=== PATIENT | male | born 1965 | race Caucasian/White ===

== ENCOUNTER 2020-10-21 05:22 | Day surgery (SDC) | payer BC, SELFPAY ==
[2020-10-07 08:35] VITALS: BMI 41.4
[2020-10-21 06:01] VITALS: BP 103/60; PULSE 63; RESP 18; TEMP 36.6; O2SAT 99; BMI 40.8
--- NOTE | 2020-10-21 06:06 | PCM.HP.BLA ---
Problem List (1) Diarrhea Status: Acute Qualifiers: (2) Nausea & vomiting Status: Acute Qualifiers: (3) Abdominal pain Status: Acute Qualifiers: Abdominal location: generalized Qualified Code(s): R10.84 - Generalized abdominal pain History and Physical Date of Admission: 10/21/20 Intake Visit Reasons: Change in bowel habits Humanities Teacher Required: No Is patient in pain?: No Allergies acetaminophen [From Vicodin] Allergy (Unknown, Verified 10/07/20 08:30) unknown hydrocodone [From Vicodin] Allergy (Unknown, Verified 10/07/20 08:30) unknown meperidine [From Demerol] Allergy (Unknown, Verified 10/07/20 08:30) unknown Medications albuterol sulfate 90 mcg/actuation aerosol inhaler 2 puff INHALATION Q6H PRN 10/07/20 [History Confirmed 10/07/20] amlodipine 5 mg tablet 5 mg PO DAILY 10/07/20 [History Confirmed 10/07/20] atorvastatin 20 mg tablet 20 mg PO DAILY 10/07/20 [History Confirmed 10/07/20] epinephrine 0.3 mg/0.3 mL injection, auto-injector 0.3 mg IM ONCE 10/07/20 [History Confirmed 10/07/20] fenofibrate 160 mg tablet 160 mg PO DAILY 10/07/20 [History Confirmed 10/07/20] glimepiride 1 mg tablet 1 mg PO DAILY 10/07/20 [History Confirmed 10/07/20] hydrochlorothiazide 25 mg tablet 25 mg PO DAILY 10/07/20 [History Confirmed 10/07/20] hydrochlorothiazide 25 mg tablet 25 mg PO Q OTHER DAY 10/07/20 [History Confirmed 10/07/20] lisinopril 5 mg tablet 5 mg PO DAILY 10/07/20 [History Confirmed 10/07/20] metformin 500 mg tablet 1,000 mg PO BID tablet 10/07/20 [History Confirmed 10/07/20] omega-3 fatty acids 1,000 mg capsule 1,000 mg PO DAILY 10/07/20 [History Confirmed 10/07/20] [facility] Medical History (Updated 10/07/20 @ 08:[address] Colin Raymundo MD) Acid reflux (Acute) Diarrhea (Acute) Nausea & vomiting (Acute) History of back problems (Acute) Arthritis (Acute) Diabetes (Acute) Hypertension (Chronic) Mixed hyperlipidemia (Acute) Cholelithiasis (Acute) Surgical History (Updated 10/07/20 @ 08:26 by Catina Ignacio) Hx of dilation of urethra (Acute) Hx of hand surgery (Acute) Hx of shoulder surgery (Acute) Family History (Updated 10/07/20 @ 08:28 by Catina Ignacio) Sister Non-Hodgkin lymphoma Mother Cancer of mesothelial tissue History of asbestosis Diabetes Heart disease Social History (Updated 10/07/20 @ 08:[address] Colin Raymundo MD) Smoking Status: Current every day smoker tobacco type: smokeless tobacco Smokeless tobacco user: snuff alcohol intake: never substance use type: does not use caffeine: Yes what type of physical activity do you participate in: none frequency: does not exercise HPI HPI HPI: BENEDICTO ALFONSO, is a 54 M who presents to the office today for surgical consultation. He is referred by Donald Arauz CNP and a written copy of my surgical consult recommendations will be returned to her. For probably 3 weeks he has been having problems with diarrhea and abdominal pain and nausea. He had stopped his omeprazole 4 weeks ago. Is not sure whether the abdominal pain correlates. He has had no fever chills sweats. He has been tested for COVID-19 on 3 occasions and was always negative. He has no loss of taste. Family history is negative for colon polyps or colon cancer. He has never had a colonoscopy. He returned to taking the omeprazole therapy and the pain is improved. Morning nausea still remains . He was also initiated on Metamucil which has helped with the diarrhea. To add some confusion he he had some finger surgery done and apparently became hypoxic requiring intubation and ventilation on the table. It was recommended to him that he might have sleep apnea and should be evaluated. He has avoided that to date. 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 HPI HPI HPI: BENEDICTO ALFONSO, is a 54 M who presents to the office today for Exam Const General: cooperative, comfortable, no acute distress Nutritional Appearance: overweight Orientation: alert, awake [facility] Head: normal to inspection Eyes General: appearance normal, both eyes and all related structures Chest Other: Increased anterior posterior diameter Resp Effort & Inspection: normal respiratory effort Auscultation: clear to auscultation bilaterally Cardio Rate: regular rate Rhythm: regular rhythm GI Other: Soft, overweight, nontender, Musc Cervical Spine: normal cervical lordosis Neuro Cognition: normal cognition Extrem General: no calf tenderness Psych Affect: normal affect Assessment & Plan Problems 1. Nausea and vomiting, intractability of vomiting not specified, unspecified vomiting type R11.2 2. Diarrhea, unspecified type R19.7 3. Generalized abdominal pain R10.84 Plan Morning nausea, epigastric and generalized abdominal pain, diarrhea of undetermined etiology. Suspicious presentation consistent with sleep apnea. I recommend the patient a esophagogastroduodenoscopy with possible biopsy and colonoscopy with possible biopsy or polypectomy as indicated. He is aware of the technique, benefit, risk, alternatives. I have additionally encouraged him to seek his primary care regarding evaluation for possible sleep apnea. He has had an opportunity to ask and have questions answered. We will schedule and expedite his care. Very careful inspection of both upper and lower systems were pursued with likely calvert biopsy. Please note that there is a past medical history documenting cholelithiasis. copy: ALEXEI Farnsworth M.D., F.A.C.S. Coding Level of Care Code 05416 Diagnoses Nausea and vomiting, intractability of vomiting not specified, unspecified vomiting type R11.2 ??Vomiting type: unspecified ??Vomiting Intractability: unspecified Diarrhea, unspecified type R19.7 ??Diarrhea type: unspecified type Generalized abdominal pain R10.84 ??Abdominal location: generalized I have re-examined the patient. There are no clinical changes since date of exam. Procedure Criteria Procedure Type: Elective COVID Risk Discussion: The surgeon/proceduralist and patient have discussed in detail the risk of exposure to and/or potential harm posed by the COVID-19 virus with having a surgery/procedure at this time versus the risk of delaying the surgery/procedure. It is not possible to know either the risk of delaying the surgery or procedure or chance of getting an infection with perfect accuracy, but a joint decision was made between the patient and the surgeon/proceduralist to proceed at this time with the scheduled surgery/procedure as indicated on the consent form.
[2020-10-21] MEDS: Lactated Ringers 1,000 ML 100 ML IV (06:15)
[2020-10-21 06:25] LABS: Bedside Glucose 87 mg/dL (70-110)
--- NOTE | 2020-10-21 06:30 | IMM_PTH ---
PATIENT: BENEDICTO ALFONSO LOC: EN U#:[id number] AGE/SX: 54/M ROOM: RE10/21/[address]: Dr. Colin Raymundo MD : 1965 BED: DIS: 10/21/2020 SPEC #: [id number] RECD: 10/21/20 13:50 STATUS: RONI REQ #: [id number] PAULINO: 10/21/20 06:[address]: Colin Raymundo DEPT: IMMUNOHISTOCHEMISTRY RECD BY: Sherlyn Car ENTERED: 10/21/20 13:50 SP TYPE: IMMUNO OTHR DR: Donald Arauz, SALES OUTFITTER-C Tissues: B - Stomach, NOS Procedures: H Pylori (initial) PHYSICIAN & INSTITUTION [place] [id number] SPECIMEN INFORMATION: Tissue Source: B - Antrum biopsy Clinical Info: Diarrhea, nausea and vomiting, abdominal pain Specimen Number: [id number] CPT code: 63680 METHODOLOGY: Deparaffinized sections of prefer/formalin-fixed tissue or PAP/DQ stained slides are incubated with monoclonal/polyclonal antibodies/oligonucleotide probes. Localization is made via biotin free immunoperoxidase method. Appropriate controls are performed and reacted as expected. Results on target cell population are indicated in the following table: RESULTS: ANTIBODY / CLONE RESULT Block B H Pylori (polyclonal) negative These tests were developed and their performance characteristics determined by [facility]. They may not have been cleared or approved by the U.S. Food and Drug Administration. The FDA has determined that such clearance or approval is not necessary. INTERPRETATION: B. Antrum biopsy: Negative for Helicobacter pylori organisms. AM:aurelia 10/24/2020
--- NOTE | 2020-10-21 06:30 | COLBX_PTH ---
PATIENT: BENEDICTO ALFONSO LOC: EN U#:[id number] AGE/SX: 54/M ROOM: RE10/21/[address]: Dr. Colin Raymundo MD : 1965 BED: DIS: 10/21/2020 SPEC #: [id number] RECD: 10/21/20 10:36 STATUS: RONI TREJO #: [id number] PAULINO: 10/21/20 06:[address]: Colin Raymundo DEPT: SURGICAL PATHOLOGY RECD BY: Cherie Mendez ENTERED: 10/21/20 13:28 SP TYPE: COLON BX OTHR DR: Donald Arauz, CHANNEL MARKETING MANAGER-C Tissues: A - Duodenum, NOS B - Gastric mucous membrane C - Esophagus, NOS D - Esophagus, NOS E - COLON BIOPSY Procedures: Trichrome (control) Special Stain Group II Surgery Specimen Level IV Alcian Blue/PAS (control) HEADER OPERATION: [place] [place] DIAGNOSIS: Diarrhea, nausea and vomiting, abdominal pain TISSUE SUBMITTED: A - Duodenum biopsy, B - Antrum biopsy for H. pylori and path, C - Distal esophagus biopsy, D - Mid esophagus biopsy, E - Random colon biopsy MICROSCOPIC DIAGNOSIS A. Duodenum, biopsy: Chronic duodenitis with flattening of villi. See comment. B. Gastric antrum, biopsy: Chronic gastritis. See comment. C. Distal esophagus, biopsy: Gastroesophageal junctional mucosa with mild chronic inflammation. No evidence of goblet cell metaplasia. Focal changes of reflux. See comment. D. Mid esophagus, biopsy: Fragments of squamous mucosa with no pathologic change. E. Colon, random biopsy: No pathologic change. See comment. AM:aurelia 10/24/2020 COMMENT A. The differential diagnosis includes celiac sprue. Clinical correlation is necessary. B. The results of immunohistochemistry for Helicobacter pylori will be reported separately ([id number]). C. Alcian blue/PAS stain with matched control supports the above diagnosis. E. Trichrome stain with matched control was used in the evaluation of this case. MICROSCOPIC DESCRIPTION Slides are reviewed. GROSS DESCRIPTION A - Received in fixative is one container labeled with the patient's name and designated duodenum biopsy. The specimen consists of one irregular fragment of light wills soft tissue that measures 0.5 x 0.2 x 0.1 cm. The specimen is totally submitted in one cassette. B - Received in fixative is one container labeled with the patient's name and designated antrum biopsy. The specimen consists of one irregular fragment of light wills soft tissue that measures 0.4 x 0.3 x 0.1 cm. The specimen is totally submitted in one cassette. C - Received in fixative is one container labeled with the patient's name and designated distal esophagus biopsy. The specimen consists of multiple irregular fragments of light wills soft tissue that in aggregate measure 0.5 x 0.5 x 0.1 cm. The specimen is totally submitted in one cassette. D - Received in fixative is one container labeled with the patient's name and designated mid esophagus biopsy. The specimen consists of one irregular fragment of light wills soft tissue that measures 0.6 x 0.3 x 0.1 cm. The specimen is totally submitted in one cassette. E - Received in fixative is one container labeled with the patient's name and designated random colon biopsy. The specimen consists of multiple irregular fragments of light wills soft tissue that in aggregate measure 1.5 x 0.5 x 0.1 cm. The specimen is totally submitted in one cassette. / SJ:aurelia 10/21/20 TC:3 CPT: 35665 x5, 04592 x2
[2020-10-21 07:00] VITALS: BP 103/60; BP 108/61; PULSE 68; RESP 18; TEMP 36.3; O2SAT 93
--- NOTE | 2020-10-21 07:04 | OP.EGD_ITS ---
Patient Name: Jeffrey Douglas Procedure Date: 10/21/2020 6:11 AM Date of : 1965 Age: 54 Procedure: Upper GI endoscopy Indications: Generalized abdominal pain, Diarrhea, Nausea Providers: Colni Raymundo MD Referring MD: Florina Farnsworth Medicines: See the Anesthesia note for documentation of the administered medications Complications: No immediate complications. Procedure: Pre-Anesthesia Assessment: - Prior to the procedure, a History and Physical was performed, and patient medications and allergies were reviewed. The patient's tolerance of previous anesthesia was also reviewed. The risks and benefits of the procedure and the sedation options and risks were discussed with the patient. All questions were answered, and informed consent was obtained. Prior Anticoagulants: The patient has taken no previous anticoagulant or antiplatelet agents. ASA Grade Assessment: II - A patient with mild systemic disease. After reviewing the risks and benefits, the patient was deemed in satisfactory condition to undergo the procedure. After obtaining informed consent, the endoscope was passed under direct vision. Throughout the procedure, the patient's blood pressure, pulse, and oxygen saturations were monitored continuously. The gastroscope was introduced through the mouth, and advanced to the second part of duodenum. The upper GI endoscopy was accomplished without difficulty. The patient tolerated the procedure well. Scope In: 6:33:57 AM Scope Out: 6:40:45 AM Total Procedure Duration Time 0 hours 6 minutes 48 seconds Findings: LA Grade A (one or more mucosal breaks less than 5 mm, not extending between tops of 2 mucosal folds) esophagitis with no bleeding was found 45 cm from the incisors. Biopsies were taken with a cold forceps for histology. The middle third of the esophagus was normal. Biopsies were taken with a cold forceps for histology. A small hiatal hernia was present. Diffuse mildly erythematous mucosa without bleeding was found in the gastric antrum. Biopsies were taken with a cold forceps for histology. Diffuse mild inflammation characterized by erythema was found in the duodenal bulb. Biopsies were taken with a cold forceps for histology. Impression: - LA Grade A reflux esophagitis. Biopsied. - Normal middle third of esophagus. Biopsied. - Small hiatal hernia. - Erythematous mucosa in the antrum. Biopsied. - Acute chronic duodenitis. Biopsied. Recommendation: - Discharge patient to home. - Resume previous diet. - Continue present medications. - Telephone my office for pathology results in 1 week. Will consider adding carafate pending biopsy results for H pylori Procedure Code(s): --- Professional --- 36883, Esophagogastroduodenoscopy, flexible, transoral; with biopsy, single or multiple Diagnosis Code(s): --- Professional --- K21.0, Gastro-esophageal reflux disease with esophagitis K44.9, Diaphragmatic hernia without obstruction or gangrene K31.89, Other diseases of stomach and duodenum K29.80, Duodenitis without bleeding R10.84, Generalized abdominal pain R19.7, Diarrhea, unspecified R11.0, Nausea CPT copyright 2017 [employer]. All rights reserved. The codes documented in this report are preliminary and upon plastic hospital products assembler review may be revised to meet current compliance requirements. Colin Raymundo MD 10/21/2020 7:03:40 AM This report has been signed electronically. Number of Addenda: 0 Note Initiated On: 10/21/2020 6:11 AM
--- NOTE | 2020-10-21 07:04 | OP.CCLET_ITS ---
10/21/2020 Florina Farnsworth Re : Upper GI endoscopy procedure for Jeffrey Douglas Dear Davonte This procedure was performed on Wednesday, October 21, 2020. My impressions and recommendations are as follows: Impressions : - LA Grade A reflux esophagitis. Biopsied. - Normal middle third of esophagus. Biopsied. - Small hiatal hernia. - Erythematous mucosa in the antrum. Biopsied. - Acute chronic duodenitis. Biopsied. Recommendations : - Discharge patient to home. - Resume previous diet. - Continue present medications. - Telephone my office for pathology results in 1 week. Will consider adding carafate pending biopsy results for H pylori My findings are described in the full procedure note, which is enclosed. If I can be of further assistance, please feel free to contact me at Doctor phone number(s): Work: . Sincerely, Colin Raymundo MD 10/21/2020 7:03:40 AM This report has been signed electronically.
[2020-10-21 07:05] VITALS: BP 103/60; BP 108/68; PULSE 67; RESP 18; O2SAT 93
--- NOTE | 2020-10-21 07:07 | OP.CCLET_ITS ---
10/21/2020 Florina Farnsworth Re : Colonoscopy procedure for Jeffrey Douglas Dear Davonte This procedure was performed on Wednesday, October 21, 2020. My impressions and recommendations are as follows: Impressions : - Preparation of the colon was poor. - Non-thrombosed external hemorrhoids, non-thrombosed internal hemorrhoids, internal hemorrhoids that prolapse with straining, but spontaneously regress to the resting position (Grade II) and enlarged prostate found on digital rectal exam. - Stool in the entire examined colon. - The examination was otherwise normal. - Biopsies were taken with a cold forceps from the entire colon for evaluation of microscopic colitis. Recommendations : - Discharge patient to home. - Resume previous diet. - Continue present medications. - Telephone my office for pathology results in 1 week. - Repeat colonoscopy in 5 years or sooner for screening purposes because of poor prep My findings are described in the full procedure note, which is enclosed. If I can be of further assistance, please feel free to contact me at Doctor phone number(s): Work: . Sincerely, Colin Raymundo MD 10/21/2020 7:07:19 AM This report has been signed electronically.
--- NOTE | 2020-10-21 07:07 | OP.COLON_ITS ---
Patient Name: Jeffrey Douglas Procedure Date: 10/21/2020 6:40 AM Date of : 1965 Age: 54 Procedure: Colonoscopy Indications: Clinically significant diarrhea of unexplained origin Providers: Colin Raymundo MD Referring MD: Florina Farnsworth Medicines: See the Anesthesia note for documentation of the administered medications Patient Profile: Last Colonoscopy: none. The patient's first colonoscopy is today. Complications: No immediate complications. Procedure: Pre-Anesthesia Assessment: - Prior to the procedure, a History and Physical was performed, and patient medications and allergies were reviewed. The patient's tolerance of previous anesthesia was also reviewed. The risks and benefits of the procedure and the sedation options and risks were discussed with the patient. All questions were answered, and informed consent was obtained. Prior Anticoagulants: The patient has taken no previous anticoagulant or antiplatelet agents. ASA Grade Assessment: II - A patient with mild systemic disease. After reviewing the risks and benefits, the patient was deemed in satisfactory condition to undergo the procedure. After I obtained informed consent, the scope was passed under direct vision. Throughout the procedure, the patient's blood pressure, pulse, and oxygen saturations were monitored continuously. The colonoscope was introduced through the anus and advanced to the cecum, identified by appendiceal orifice and ileocecal valve. The colonoscopy was performed without difficulty. The patient tolerated the procedure well. The quality of the bowel preparation was poor. The ileocecal valve and the appendiceal orifice were photographed. Scope In: 6:42:56 AM Scope Withdrawal Time 0 hours 8 minutes 49 seconds Scope Out: 6:55:41 AM Total Procedure Duration Time 0 hours 12 minutes 45 seconds Findings: The digital rectal exam findings include non-thrombosed external hemorrhoids, non-thrombosed internal hemorrhoids, internal hemorrhoids that prolapse with straining, but spontaneously regress to the resting position (Grade II) and enlarged prostate. A moderate amount of semi-liquid stool was found in the entire colon, making visualization difficult. The exam was otherwise without abnormality. Biopsies for histology were taken with a cold forceps from the entire colon for evaluation of microscopic colitis. Impression: - Preparation of the colon was poor. - Non-thrombosed external hemorrhoids, non-thrombosed internal hemorrhoids, internal hemorrhoids that prolapse with straining, but spontaneously regress to the resting position (Grade II) and enlarged prostate found on digital rectal exam. - Stool in the entire examined colon. - The examination was otherwise normal. - Biopsies were taken with a cold forceps from the entire colon for evaluation of microscopic colitis. Recommendation: - Discharge patient to home. - Resume previous diet. - Continue present medications. - Telephone my office for pathology results in 1 week. - Repeat colonoscopy in 5 years or sooner for screening purposes because of poor prep Procedure Code(s): --- Professional --- 40909, Colonoscopy, flexible; with biopsy, single or multiple Diagnosis Code(s): --- Professional --- K64.1, Second degree hemorrhoids K64.4, Residual hemorrhoidal skin tags R19.7, Diarrhea, unspecified N40.0, Benign prostatic hyperplasia without lower urinary tract symptoms CPT copyright 2017 [employer]. All rights reserved. The codes documented in this report are preliminary and upon auditing coder review may be revised to meet current compliance requirements. Colin Raymundo MD 10/21/2020 7:07:19 AM This report has been signed electronically. Number of Addenda: 0 Note Initiated On: 10/21/2020 6:40 AM
[2020-10-21 07:09] VITALS: BP 103/60; BP 109/76; PULSE 70; RESP 20; O2SAT 93
[2020-10-21 07:15] VITALS: BP 103/60; BP 113/70; PULSE 65; RESP 18; TEMP 37.5; O2SAT 96
[2020-10-21 07:28] VITALS: BP 103/60
== END 2020-10-21 07:51 | disposition home or self-care (01) ==
LOC: EN 05:23 → AC 05:23
PROVIDERS: PCP Nurse Practitioner Family; Referring Provider Nurse Practitioner Family; Visit Provider Surgery
PROC: 0DJD8ZZ Inspection of Lower Intestinal Tract, Via Natural or Artificial Opening Endoscopic (ICD-10-PCS; CPT 45378; principal; 2020-10-21 06:25)
DX: K29.50 Unspecified chronic gastritis without bleeding (principal); K21.00 Gastro-esophageal reflux disease with esophagitis, without bleeding; K44.9 Diaphragmatic hernia without obstruction or gangrene; K31.89 Other diseases of stomach and duodenum; K29.80 Duodenitis without bleeding; K64.1 Second degree hemorrhoids; K64.4 Residual hemorrhoidal skin tags; N40.0 Benign prostatic hyperplasia without lower urinary tract symptoms; R19.7 Diarrhea, unspecified; I10 Essential (primary) hypertension; Z72.0 Tobacco use; Z79.84 Long term (current) use of oral hypoglycemic drugs; Z88.5 Allergy status to narcotic agent
CPT/HCPCS: 43239; 45380; 82962; 87426; 88305; 88313; 88342; C9803; J7120; J2405

== ENCOUNTER → 2020-11-08 15:05 | Outpatient (CLI) | payer BC, SELFPAY ==
[2020-10-21 06:01] VITALS: BMI 40.8
[2020-11-10 16:08] LABS: Endomysial Antibody IgA Negative (Negative)
[2020-11-11 08:36] LABS: Immunoglobulin A 325 mg/dL (90-386); t-Transglutaminase IgA 4 U/mL (0-3)
== END ==
PROVIDERS: PCP Nurse Practitioner Family; Referring Provider Surgery; Visit Provider Surgery
DX: R10.9 Unspecified abdominal pain (principal); R19.7 Diarrhea, unspecified
CPT/HCPCS: 36415; 82784; 83516; 86255

== ENCOUNTER 2021-11-01 04:40 | Emergency (ER) | payer BC, SELFPAY ==
[2021-11-01 04:41] VITALS: BP 128/80; PULSE 80; RESP 16; TEMP 36.9; O2SAT 96; BMI 45.0
--- NOTE | 2021-11-01 04:52 | CT_ITS ---
EXAM: CT ABDOMEN AND PELVIS WITH INTRAVENOUS CONTRAST CLINICAL INDICATION: R flank pain TECHNIQUE: Helically acquired images were obtained of the abdomen and pelvis with intravenous contrast. This CT exam was performed using one or more of the following dose reduction techniques: automated exposure control, adjustment of the mA and/or kV according to patient size, and/or use of iterative reconstruction technique. This report was created using AIS report generation technology. CONTRAST: IV 100mL Isovue-300 RADIATION DOSE: CTDIvol = 20.40 mGy, DLP = 1337.27 mGy-cm COMPARISON: None. FINDINGS: LOWER THORAX: Minimal bands of atelectasis in the lung bases. Mild calcification or stents in bilateral coronary arteries, suspected stents. Normal heart size. ABDOMEN: LIVER: Hepatomegaly and fatty liver, mildly low-attenuation liver measures 20.2 cm craniocaudal. GALLBLADDER AND BILE DUCTS: Unremarkable. No calcified gallstones. No gallbladder distention or wall edema. No intra- or extrahepatic biliary ductal dilation. PANCREAS: Unremarkable. No focal cystic or solid mass. SPLEEN: Unremarkable. Normal size without focal cystic or solid mass. ADRENALS: Unremarkable. No nodules. KIDNEYS AND URETERS: Exophytic simple-appearing cystic lesion of 2 cm x 1.6 cm at the posterior inferior left kidney. No follow-up imaging is necessary for this cystic lesion. Also a few tiny suspected cortical cysts in the left kidney, too small to characterize. No hydronephrosis. STOMACH AND BOWEL: No oral or rectal contrast is present. Mildly prominent fluid and gas in multiple small bowel loops. Moderate stool in most of the proximal half the colon. Mild scattered diverticulosis distal colon and to a lesser extent in the right colon. No evidence of acute diverticulitis. No stomach or bowel distention. PELVIS: APPENDIX: No evidence of acute appendicitis. BLADDER: Unremarkable. REPRODUCTIVE: Unremarkable as visualized. No mass. ABDOMEN and PELVIS: INTRAPERITONEAL SPACE: Unremarkable. No ascites or other fluid collection. No free air. BONES/JOINTS: See above. SOFT TISSUES: Slight fat inguinal rings, greater on the right. No discrete abdominal or pelvic wall hernia. VASCULATURE: Unremarkable. Abdominal aorta is non-dilated. Minimal atherosclerotic calcification of aortoiliac vessels LYMPH NODES: There are several enlarged lymph nodes in the mesenteric fat left at, including a confluent lobulated structure density measuring roughly 4 cm x 2 cm on coronal image #57, probably confluent lymph nodes, additional adjacent lymph nodes of up to 1.9 cm x 1.4 cm. Mild retroperitoneal adenopathy including aortocaval lymph node of 9 mm x 2.3 cm at the level of the renal arteries. Fatty replaced bilateral external iliac nodes of up to 1.3 cm short axis[address] Nonspecific. CT/Abdomen/Pelvis W IV Cont ONLY IMPRESSION: 1. Hepatomegaly and fatty liver. 2. Moderate mesenteric adenopathy, uncertain chronicity. 3. Minimal retroperitoneal adenopathy, uncertain chronicity. 4: Moderate stool in much of the proximal half the colon. Mild scattered diverticulosis. No evidence of acute diverticulitis or appendicitis. 5. Degenerative spine changes including moderate L4-5 and marked L5-S1 neural foraminal stenosis. Electronically Signed: Britany Childers MD at 6:02 EDT ,
--- NOTE | 2021-11-01 04:53 | EDS_ITS ---
HPI HPI - GI History of Present Illness Chief Complaint: Other, Pain/Inj Informant: patient Abdominal Pain/Flank Pain Onset: Hours (5) Context: Gradual Onset Timing: Continuous and Waxes and wanes Quality: Aching Location: Right Flank (Without radiation or migration) Current Severity: Severe Maximum Severity: Severe Worsened by: Nothing Relieved by: Nothing Nausea/Vomiting/Emesis GI Symptom: Negative for Nausea and Vomiting Diarrhea/Melena/Hematochezia GI Symptom: Negative for Diarrhea, Melena and Hematochezia Associated Symptoms Associated Symptoms: Negative for Dysuria, Frequency, Hematuria and Urgency Narrative Narrative: Patient had gradual onset of pain in his right side and upper quadrant. States long ago he had gallbladder attacks and never required a cholecystectomy. He is unsure if this feels the same or not but thinks that this is a little further over to the side then those pains were. He does not have any pain in his back or down in his groin/scrotum. No associated nausea or vomiting. No chest symptoms. No history of kidney stones that he knows of. And denies a history of any abdominal surgeries in the past. [facility] Medical History Acid reflux Arthritis Cholelithiasis Diabetes Diarrhea History of back problems Hypertension Mixed hyperlipidemia Nausea & vomiting Home Medications amlodipine 5 mg tablet 5 mg PO DAILY 10/07/20 [History Last Taken 10/21/20] atorvastatin 20 mg tablet 20 mg PO DAILY 10/07/20 [History Last Taken Unknown] fenofibrate 160 mg tablet 160 mg PO DAILY 10/07/20 [History Last Taken Unknown] glimepiride 1 mg tablet 1 mg PO DAILY 10/07/20 [History Last Taken Unknown] hydrochlorothiazide 25 mg tablet 25 mg PO DAILY 10/07/20 [History Last Taken Unknown] lisinopril 5 mg tablet 5 mg PO DAILY 10/07/20 [History Last Taken 10/21/20] metformin 500 mg tablet 500 mg PO BID tablet 10/07/20 [History Last Taken Unknown] cinnamon bark 500 mg PO DAILY 10/17/20 [History Last Taken Unknown] omeprazole 20 mg PO DAILY 10/17/20 [History Last Taken 10/21/20] sucralfate 1 gram tablet See Rx Instructions .ROUTE .COMPLEX #120 tab 10/31/21 [Rx Last Taken Unknown] dicyclomine 20 mg PO Q6H PRN PRN #20 capsule 11/01/21 [Rx Last Taken Unknown] Allergy/AdvReac Type Severity Reaction Status Date / Time hydrocodone [From Vicodin] Allergy Unknown unknown Verified 11/01/21 04:45 meperidine [From Demerol] Allergy Unknown unknown Verified 11/01/21 04:45 Family History (Updated 10/07/20 @ 08:28 by Catina Ignacio) Sister Non-Hodgkin lymphoma Mother Cancer of mesothelial tissue History of asbestosis Diabetes Heart disease Surgical History Hx of dilation of urethra Hx of hand surgery Hx of shoulder surgery Social History Smoking Status: Current every day smoker tobacco type: smokeless tobacco Smokeless tobacco user: snuff alcohol intake: never substance use type: does not use caffeine: Yes what type of physical activity do you participate in: none frequency: does not exercise ROS ROS ED Constitutional Constitutional ED: Denies chills or fever(s) Eyes Eyes: Denies change in vision or diplopia ENT ENT ED: Denies rhinorrhea or sore throat Cardiovascular Cardiovascular: Denies chest pain or palpitations Respiratory/Chest Respiratory/Chest: Denies cough or dyspnea Gastrointestinal Gastrointestinal: Reports as per HPI and abdominal pain; Denies diarrhea, nausea or vomiting Genitourinary Genitourinary ED: Reports as per HPI and flank pain; Denies dysuria or hematuria Musculoskeletal Musculoskeletal: Denies back pain or neck pain Integumentary Denies abscess or rash Neurologic Neurologic: Denies headache(s), paresthesias or weakness Psychiatric Psychiatric: Denies anxiety or suicidal thoughts EXAM Physical Exam Const Vital Signs: 11/01/21 04:41 11/01/21 04:47 Temperature 98.4 F Temperature Source Oral Pulse Rate 80 Respiratory Rate 16 Respiratory Effort Normal Respiratory Pattern Normal Blood Pressure 128/80 H Blood Pressure Mean 96 Pulse Ox 96 Oxygen Delivery Method Room Air Positive well nourished, well developed and obese General Appearance ED: well developed and NAD Nutritional Appearance: obese HEENT Reports moist mucous membranes normocephalic and atraumatic Eyes PERRL and EOMs intact bilaterally Neck full ROM and supple Chest Wall inspection of chest normal and palpation of chest normal Resp normal respiratory effort and clear to auscultation bilaterally Cardio regular rate, regular rhythm and no murmurs GI non-distended GI Narrative: Tender in the lateral aspect of the right upper quadrant/flank without CVA tenderness. Negative Kaufman's. Mildly tender in the medial right upper quadrant and epigastrium but without any guarding or rebound tenderness. The rest of his abdomen is benign. Ribs nontender. Auscultation: normoactive bowel sounds Palpation: soft Back/Spine no CVA tenderness, normal ROM and normal to inspection General Back: other FROM Extremity normal to inspection General Extremety ED: Negative for edema, pulses abnormal or tenderness General Extremity: Negative for edema or pulses abnormal Neuro oriented x3, CN's II-XII intact bilaterally and no sensory deficits noted Sensorium / Orientation: awake and alert Motor Exam: strength 5/5 throughout Skin no rashes or lesions noted and no wounds MDM MDM MDM Narrative Medical decision making narrative: Patient was treated with morphine, Toradol, prophylactic Zofran he felt much better on reevaluation and his pain did not return while in the emergency department. His lab work is unremarkable except for a very mildly nonspecific elevated white blood count at 11.4, no left shift. Liver enzymes lipase urine all unremarkable. His CT shows mesenteric adenopathy, retroperitoneal adenopathy, as well as a lot of stool in the proximal half of the colon, which is where he was having pain. It is certainly possible this is related and he was having colonic spasms related to hard stool having trouble moving through the colon, it is also possible that this is an incidental finding as it is normal to see stool in the colon. There is no evidence of diverticulitis, appendicitis, or other acute abnormality. As I discussed with the patient, abnormal lymph nodes do not necessarily indicate lymphoma, but although these are not necessarily labeled by the radiologist as suspicious, this should be followed to ensure resolution in order to rule out things like this. Unknown if the lymphadenopathy is related to his discomfort or not. At this point I am giving him a prescription for dicyclomine to fill and use as needed if he has recurrent pain, and magnesium citrate to perform sort of a colon cleanse and take that out of the equation. If he continues to have problems he should follow-up with his doctor, severe symptoms or new concerning symptoms feel free to return to the emergency department. As I discussed with patient and family, also in the differential here is a kidney stone that the patient already passed prior to imaging, gallbladder issues that are not showing up on CT, the patient presents when ultrasound is not available, however there are no radiographic or laboratory evidence of acute cholecystitis here. Lab Data Attestation: I reviewed the patient's lab results. Labs: Laboratory Results - last 24 hr 11/01/21 11/01/21 11/01/21 04:58 04:58 05:00 WBC 11.4 H RBC 4.97 Hgb 14.8 Hct 44.8 MCV 90.1 MCH 29.8 MCHC 33.0 RDW Std Deviation 48.4 H RDW Coeff of [place]y 14.7 H Plt Count 337 MPV 9.4 Immature Gran % (Auto) 0.800 Neut % (Auto) 62.3 Lymph % (Auto) 20.0 [place] % (Auto) 14.3 H Eos % (Auto) 2.2 Baso % (Auto) 0.4 Absolute Neuts (auto) 7.1 Absolute Lymphs (auto) 2.28 Nucleated RBC % 0 Differential Comment SCANNED Diff Path Review May foll Sodium 138 Potassium 3.8 Chloride 107 Carbon Dioxide 24.0 Anion Gap 7 BUN 21 H Creatinine 0.99 Estim Creat Clear Calc 80.68 Est GFR (MDRD) Af Amer 101 Est GFR (MDRD) Non-Af 83 BUN/Creatinine Ratio 21.1 H Glucose 134 H Calcium 8.5 Total Bilirubin 0.30 AST 25 ALT 46 Alkaline Phosphatase 88 Total Protein 7.6 Albumin 3.9 Globulin 3.7 Albumin/Globulin Ratio 1.1 Lipase 241 Urine Color Yellow Urine Clarity Clear Urine pH 6.0 Ur Specific [place] 1.020 Urine Protein Negative Urine Glucose (UA) Normal Urine Ketones Negative Urine Occult Blood Negative Urine Nitrite Negative Urine Bilirubin Negative Urine Urobilinogen Normal Ur Leukocyte Esterase Negative Urine RBC 0 SEEN Urine WBC 0 SEEN Ur Squamous Epith Cells 0 SEEN Urine Bacteria 0 SEEN Urine Mucus 0 SEEN Radiography Diagnostic Testing: Clinical Impression(s) from Imaging Studies Abdomen/Pelvis CT 11/01/21 04:52 IMPRESSION: 1. Hepatomegaly and fatty liver. 2. Moderate mesenteric adenopathy, uncertain chronicity. 3. Minimal retroperitoneal adenopathy, uncertain chronicity. 4: Moderate stool in much of the proximal half the colon. Mild scattered diverticulosis. No evidence of acute diverticulitis or appendicitis. 5. Degenerative spine changes including moderate L4-5 and marked L5-S1 neural foraminal stenosis. Electronically Signed: Britany Childers MD at 6:02 EDT , Discharge Plan Triage Chief Complaint: Other, Pain/Inj ED Provider: Oscar Schmidt Dx/Rx/DC Orders Clinical Impression: Abdominal pain, acute, right upper quadrant, Lymphadenopathy, mesenteric Instructions: Lymphadenopathy, ED Flank Pain, Uncertain Cause Prescriptions: New dicyclomine 10 MG capsule 20 mg PO Q6H PRN PRN (Reason: abdominal discomfort) Qty: 20 RF: 0 No Action amlodipine [Norvasc] 5 mg tablet 5 mg PO DAILY RF: 0 fenofibrate 160 mg tablet 160 mg PO DAILY RF: 0 glimepiride 1 mg tablet 1 mg PO DAILY RF: 0 hydrochlorothiazide 25 mg tablet 25 mg PO DAILY RF: 0 metformin 500 mg tablet 500 mg PO BID RF: 0 lisinopril 5 mg tablet 5 mg PO DAILY RF: 0 atorvastatin 20 mg tablet 20 mg PO DAILY RF: 0 cinnamon bark 500 MG capsule 500 mg PO DAILY RF: 0 omeprazole 20 MG capsule 20 mg PO DAILY RF: 0 sucralfate 1 gram tablet See Rx Instructions .ROUTE .COMPLEX Qty: 120 RF: 6 Primary Care Provider: Donald Arauz NP Referrals: Donald Arauz [employer], [employer] [Primary Care Provider] - 3-5 Days if not improving Activity Restrictions/Additional Instructions: Reasonable to treat constipation; drink half of the bottle of magnesium citrate, and jayson it with plenty of fluids/water. It should create a laxative effect somewhere between 6 and 24 hours, sometimes sooner. If it does not have any effect and you do not have a bowel movement within 24 hours, repeat with the second half of the bottle. Disposition Disposition: Home, Self Care
[2021-11-01 05:01] LABS: Absolute Lymphocyte Count 2.28 X10^3/uL (0.83-4.51); Absolute Neutrophil Count 7.1 X10^3/uL (2.0-7.7); Basophil# 0.05 X10^3/uL; Basophil% 0.4 % (0-1); Eosinophil# 0.25 X10^3/uL; Eosinophils% 2.2 % (0-5); Hematocrit 44.8 % (40-54); Hemoglobin 14.8 g/dL (13.0-16.5); Lymphocyte # 2.28 X10^3/ul (0.83-4.51); Mean Corpuscular Hgb 29.8 pg (27.0-32.0); Mean Corpuscular Volume 90.1 fL (80-94); Mean Platelet Vol. 9.4 fl (6.2-12.0); Monocyte# 1.63 X10^3/uL; Monocyte% 14.3 % (0-10); NRBC Flagged by Analyzer 0 % (0-5); Neutrophil # 7.11 X10^3/uL (2.7-7.7); Neutrophil % 62.3 % (47-70); POSITIVE DIFFERENTIAL YES; Platelet Count 337 K/mm3 (150-450); RBC Distribution Width CV 14.7 % (11.6-14.6); RBC Distribution Width SD 48.4 fl (35.1-43.9); Red Blood Count 4.97 M/mm3 (4.6-6.2); White Blood Count 11.4 K/mm3 (4.4-11.0)
[2021-11-01 05:03] LABS: Differential Indicated SCAN CRITERIA MET
[2021-11-01 05:09] LABS: Bacteria 0 SEEN /hpf (None Seen); Mucous, Urine 0 SEEN /hpf (<or=2+); Red Blood Cells-Urine 0 SEEN /hpf (0-5); Squamous Epithelial Cells - UA 0 SEEN /hpf (0-5); White Blood Cells 0 SEEN /hpf (0-5)
[2021-11-01 05:10] LABS: Color, Urine Yellow (Yellow); Glucose, Dipstick Normal (Normal); Ketone-Dipstick Negative (Negative); Leukocyte Esterase-Dipstick Negative /ul (Negative); Nitrite-Dipstick Negative (Negative); Occult Blood-Urine Negative /ul (Negative); Protein-Dipstick Negative (Negative); Urine Bilirubin Dipstick Negative (Negative); Urine Clarity Clear (Clear); Urine Urobilinogen Normal (Normal)
[2021-11-01 05:18] LABS: ALB/GLOB Ratio 1.1 RATIO (0.9-2.4); AST(SGOT) 25 U/L (15-37); Alanine Aminotransfer ALT/SGPT 46 U/L (16-61); Albumin, Serum 3.9 g/dL (3.2-5.0); Alkaline Phosphatase 88 U/L (45-117); Anion Gap 7 (5-15); BUN 21 mg/dL (7-18); BUN/Creat Ratio 21.1 RATIO (10-20); Calcium,Total 8.5 mg/dL (8.5-10.1); Chloride 107 mmol/L (98-107); Creatinine, Serum 0.99 mg/dL (0.70-1.30); Differential Comment SCANNED; EST Glomerular Filtration Rate 83 mL/min (>60); Est Glom Filt Rate - Afr Amer 101 mL/min (>60); Estimated Creatinine Clearance 80.68 ml/min; Globulin 3.7 g/dL (2.2-4.2); Glucose 134 mg/dL (74-106); Lipase 241 U/L (73-393); Potassium 3.8 mmol/L (3.5-5.1); Protein, Total 7.6 g/dL (6.4-8.2); Sodium Level 138 mmol/L (136-145)
[2021-11-01] MEDS: Ketorolac 15 MG/ML Vial IV (05:20)
[2021-11-01] MEDS: Morphine 4 MG/ML Syringe IV (05:21)
[2021-11-01] MEDS: Magnesium Citrate 300 ML 150 ML PO (06:51)
[2021-11-01 06:52] VITALS: BP 132/74; PULSE 78; RESP 17; O2SAT 99
[2021-11-01 13:44] LABS: Pathologist Review Reviewed
== END 2021-11-01 06:53 | disposition home or self-care (01) ==
PROVIDERS: Emergency Provider Emergency Medicine; PCP Nurse Practitioner Family; Visit Provider Emergency Medicine
DX: R10.11 Right upper quadrant pain (principal); E11.9 Type 2 diabetes mellitus without complications; R59.0 Localized enlarged lymph nodes; K58.0 Irritable bowel syndrome with diarrhea; E78.2 Mixed hyperlipidemia; R11.2 Nausea with vomiting, unspecified; F17.220 Nicotine dependence, chewing tobacco, uncomplicated; I10 Essential (primary) hypertension; K57.30 Diverticulosis of large intestine without perforation or abscess without bleeding; K21.9 Gastro-esophageal reflux disease without esophagitis
CPT/HCPCS: 74177; 80053; 81001; 83690; 85025; 99283; A4216

== ENCOUNTER 2024-10-12 13:13 | Emergency (ER) | payer BC, SELFPAY ==
[2024-10-12 13:14] VITALS: BP 130/81; PULSE 77; RESP 18; TEMP 36.3; O2SAT 97; BMI 42.2
--- NOTE | 2024-10-12 13:59 | CT_ITS ---
PROCEDURE: ABDOMEN/PELVIS WITHOUT CONT 10/12/2024 REASON FOR EXAM: KIDNEY STONE TECHNIQUE: Abdomen and pelvis CT without intravenous contrast. Noncontrast technique limits evaluation of the abdominal and pelvic viscera. Coronal and Sagittal reconstruction series were provided. One or more dose reduction techniques were used (e.g., Automated exposure control, adjustment of the mA and/or kV according to patient size, use of iterative reconstruction technique). PATIENT PREPARATION: Per protocol ORAL CONTRAST TYPE: None. AMOUNT: 0 mL COMPARISON: No relevant prior. FINDINGS: Lung bases: Unremarkable. Liver: Normal-size and attenuation. No masses demonstrated. Gallbladder: Normal. Spleen: Normal in size and attenuation. Pancreas: Normal-size. No ductal dilatation. No masses. Adrenals: Normal. Kidneys: Normal-size. No calcifications. No suspicious masses. Left inferior pole cyst measuring 1.9 cm. Bladder: Unremarkable. No calcifications noted. Reproductive Organs: Unremarkable. Bowel: Diverticulosis coli. Appendix: Unremarkable. Lymph nodes: No adenopathy. Scattered shotty lymph nodes throughout the mesentery. Vasculature: Scattered calcified plaque throughout the aorta and iliac arteries. Peritoneum / Retroperitoneum: No free air. No free fluid. No intraperitoneal masses. Abdominal wall: Small bilateral fat containing inguinal hernias. Bones: Multilevel spondylosis and degenerative disc disease. CT/Abdomen/Pelvis without Cont IMPRESSION: 1. No evidence of an obstructive uropathy or intrarenal calcifications. 2. Colon diverticulosis without signs of diverticulitis. 3. Nonspecific shotty lymph nodes scattered throughout the mesenteric fat. 4. Left inferior pole renal cyst. 5. Other nonacute findings detailed above. Reading Location: [place] [address]
[2024-10-12 14:15] LABS: Absolute Lymphocyte Count 2.46 X10^3/uL (0.83-4.51); Absolute Neutrophil Count 4.5 X10^3/uL (2.0-7.7); Basophil# 0.04 X10^3/uL; Basophil% 0.5 % (0-1); Eosinophil# 0.31 X10^3/uL; Eosinophils% 3.8 % (0-5); Hematocrit 43.6 % (40-54); Hemoglobin 14.6 g/dL (13.0-16.5); Lymphocyte # 2.46 X10^3/ul (0.83-4.51); Lymphocyte % 30.3 % (19-41); Mean Corp Hgb Conc 33.5 g/dL (32-36); Mean Corpuscular Hgb 30.1 pg (27.0-32.0); Mean Corpuscular Volume 89.9 fL (80-94); Mean Platelet Vol. 9.5 fl (6.2-12.0); Monocyte# 0.82 X10^3/uL; Monocyte% 10.1 % (0-10); NRBC Flagged by Analyzer 0 % (0-5); Neutrophil # 4.48 X10^3/uL (2.7-7.7); Neutrophil % 55.1 % (47-70); Platelet Count 365 K/mm3 (150-450); RBC Distribution Width SD 46.3 fl (35.1-43.9); Red Blood Count 4.85 M/mm3 (4.6-6.2); White Blood Count 8.1 K/mm3 (4.4-11.0)
[2024-10-12] MEDS: 0.9% Normal Saline (1000mL) 1,000 ML 250 ML IV (14:16)
[2024-10-12] MEDS: Ondansetron 4 MG/2 ML Vial IV (14:16)
[2024-10-12] MEDS: Ketorolac 30 MG/ML Syringe 15 MG IV (14:17)
--- NOTE | 2024-10-12 14:21 | EX.ED.DYSGE1 ---
HPI History of Present Illness Chief Complaint: Flank Pain Informant: patient Narrative Narrative: Patient is 58-year-old male with history of hyperlipidemia, diabetes mellitus and gallstones presenting with patient is a 58-year-old male with history of hypertension, hyperlipidemia, diabetes mellitus and gallstones as well as arthritis presenting with left-sided flank pain. He states it started this morning while he was at work. He states he does have a physical job but denies any injury. He states since the pain started it has been constant but fluctuates in intensity and symptoms are very sharp pain right underneath his left lower ribs that radiates to his back. Denies any pain in his abdomen or groin. Denies any urinary symptoms including frequency or dysuria. Denies any known history of kidney stones. Denies any associated numbness or tingling. Has had some mild nausea associate with the pain. Is not had anything for his pain prior to arrival. No other complaints or concerns reported at this time. Does also report that over this past month he has been having more frequent diarrhea but was recently restarted on metformin. Denies any blood in his stool. No other complaints or concerns reported at this time. [facility] Medical History Acid reflux Diarrhea Nausea & vomiting History of back problems Arthritis Diabetes Hypertension Mixed hyperlipidemia Cholelithiasis Home Medications ?Medication ?Instructions ?Recorded ?Last Taken ?Type amlodipine 5 mg tablet (Norvasc) 5 mg PO DAILY 10/07/20 10/21/20 History atorvastatin 20 mg tablet 20 mg PO DAILY 10/07/20 Unknown History fenofibrate 160 mg tablet 160 mg PO DAILY 10/07/20 Unknown History glimepiride 1 mg tablet 1 mg PO DAILY 10/07/20 Unknown History hydrochlorothiazide 25 mg tablet 25 mg PO DAILY 10/07/20 Unknown History lisinopril 5 mg tablet 5 mg PO DAILY 10/07/20 10/21/20 History metformin 500 mg tablet 500 mg PO BID 10/07/20 Unknown History cinnamon bark 500 mg capsule 500 mg PO DAILY 10/17/20 Unknown History omeprazole 20 mg capsule,delayed 20 mg PO DAILY 10/17/20 10/21/20 History release dicyclomine 10 mg capsule 20 mg (2 x 10 mg) PO Q6H PRN PRN 11/01/21 Unknown Rx abdominal discomfort #20 CAPSULES sucralfate 1 gram tablet 1 g PO 4X/DAY #120 TABLETS 01/17/24 Unknown Rx oxycodone-acetaminophen 5 mg-325 1 tab PO Q8H PRN pain 3 days #10 10/12/24 Unknown Rx mg tablet (Percocet) tabs valacyclovir 1 gram tablet 1,000 mg PO Q8H 7 days #21 tabs 10/12/24 Unknown Rx (Valtrex) Allergy/AdvReac Type Severity Reaction Status Date / Time hydrocodone (From Vicodin) Allergy Unknown unknown Verified 11/01/21 04:45 meperidine (From Demerol) Allergy Unknown unknown Verified 11/01/21 04:45 Family History Sister Non-Hodgkin lymphoma Mother Cancer of mesothelial tissue History of asbestosis Diabetes Heart disease Surgical History Hx of dilation of urethra Hx of hand surgery Hx of shoulder surgery Social History Smoking Status: Current every day smoker tobacco type: smokeless tobacco Smokeless tobacco user: snuff alcohol intake: never substance use type: does not use caffeine: Yes what type of physical activity do you participate in: none frequency: does not exercise ROS ROS ED Constitutional Constitutional ED: Denies chills or fever(s) Cardiovascular Cardiovascular: Denies chest pain Respiratory/Chest Respiratory/Chest: Denies cough or dyspnea Gastrointestinal Gastrointestinal: Reports diarrhea, nausea and other Details: left flank pain ; Denies constipation or vomiting Genitourinary Genitourinary ED: Denies dysuria, hematuria or urinary frequency Musculoskeletal Musculoskeletal: Reports arthralgias and back pain Integumentary Denies rash Neurologic Neurologic: Denies paresthesias or weakness Psychiatric Psychiatric: Denies anxiety Hematologic/Lymphatic Hematologic/Lymphatic: Denies easy bleeding or easy bruising EXAM Physical Exam Const Vital Signs: 10/12/24 13:14 10/12/24 15:14 Temperature 97.4 F L Temperature Source Oral Pulse Rate 77 66 Respiratory Rate 18 16 Blood Pressure 130/81 H 128/84 H Blood Pressure Mean 97 98 Pulse Ox 97 98 Oxygen Delivery Method Room Air Positive well nourished and well developed General Appearance ED: well developed and NAD Eyes PERRL Neck supple Chest Wall inspection of chest normal Chest Narrative: Mild tenderness palpation over the left inferior ribs most pronounced at the midclavicular line. No associated crepitus appreciated. No overlying hematoma or skin changes. Resp normal respiratory effort and clear to auscultation bilaterally Cardio regular rate, regular rhythm and no murmurs Cardio Narrative: 2+ radial and DP pulses present GI normal to inspection, nondistended, normoactive bowel sounds and non-tender GI Narrative: Abdomen soft. No significant tenderness to palpation. Palpation: Negative for tender or guarding Back/Spine General Back: CVA tenderness left Thoracic Spine / Upper Back: Negative for thoracic spinal tenderness Extremity normal to inspection General Extremety ED: Negative for edema General Extremity: Negative for edema Neuro oriented x3 Sensorium / Orientation: alert Motor Exam: Negative for general weakness Psych mental status grossly normal Skin no rashes or lesions noted and no wounds MDM MDM MDM Narrative Medical decision making narrative: Patient presents with left flank/back pain. Differential included renal colic, msk pain, thoracic radicular pain, prodrome of shingles or possible colitis. Patient given IV Toradol and gentle fluids as well as Zofran for symptoms the emergency room. Workup including CBC and CMP largely normal. Urinalysis is not consistent with infection or any other acute abnormality. CT of the abdomen pelvis does not show any kidney stones or hydroureter/obstructive uropathy. There is diverticulosis of the colon with no diverticulitis. There is nonspecific shotty lymph nodes scattered through the mesenteric fat but no other acute process to explain his symptoms. Does have multilevel degenerative disease of the spine. On repeat evaluation patient states he has been a little better. Discussed with patient his results. Will give him information for spinal surgery will do [id number] prescription for Valtrex in case this is a prodrome of shingles and he develops a rash for the next 24 to 48 hours. Will be given a short course of [place] for breakthrough pain but otherwise instructed to alternate ibuprofen and Tylenol. Directed follow-up with primary care for his diet loss his pain. As he does not have midline spinal tenderness and do not think requires emergent referral to spinal surgery but will be given information for Dr. Shell should he choose to follow-up. This time I instructed that I do think he could follow-up comfortably with primary care. Given return precautions. Patient and verbalized agreement to this plan. Discharged home in stable condition Lab Data Attestation: I reviewed the patient's lab results. Labs: Laboratory Results - last 24 hr 10/12/24 10/12/24 14:05 14:20 WBC 8.1 RBC 4.85 Hgb 14.6 Hct 43.6 MCV 89.9 MCH 30.1 MCHC 33.5 RDW Std Deviation 46.3 H RDW Coeff of Ludy 14.0 Plt Count 365 MPV 9.5 Immature Gran % (Auto) 0.200 Neut % (Auto) 55.1 Lymph % (Auto) 30.3 [place] % (Auto) 10.1 H Eos % (Auto) 3.8 Baso % (Auto) 0.5 Absolute Neuts (auto) 4.5 Absolute Lymphs (auto) 2.46 Nucleated RBC % 0 Sodium 139 Potassium 4.2 Chloride 106 Carbon Dioxide 22.3 Anion Gap 11 BUN 16 Creatinine 1.08 Estim Creat Clear Calc 95.70 Est GFR (MDRD) Non-Af 81 BUN/Creatinine Ratio 14.4 Glucose 104 H Calcium 9.5 Total Bilirubin 0.30 AST 32 ALT 33 Alkaline Phosphatase 56 Total Protein 7.5 Albumin 4.3 Globulin 3.2 Albumin/Globulin Ratio 1.3 Urine Color Yellow Urine Clarity Clear Urine pH 6.0 Ur Specific [place] 1.010 Urine Protein Negative Urine Glucose (UA) Normal Urine Ketones Negative Urine Occult Blood Negative Urine Nitrite Negative Urine Bilirubin Negative Urine Urobilinogen Normal Ur Leukocyte Esterase Negative Urine RBC 0 SEEN Urine WBC 0 SEEN Ur Squamous Epith Cells 0 SEEN Urine Bacteria 0 SEEN Urine Mucus 0 SEEN Radiography Diagnostic Testing: Clinical Impression(s) from Imaging Studies Abdomen/Pelvis CT 10/12/24 13:59 IMPRESSION: 1. No evidence of an obstructive uropathy or intrarenal calcifications. 2. Colon diverticulosis without signs of diverticulitis. 3. Nonspecific shotty lymph nodes scattered throughout the mesenteric fat. 4. Left inferior pole renal cyst. 5. Other nonacute findings detailed above. Reading Location: [place] [address] Discharge Plan Triage Chief Complaint: Flank Pain Other Complaint: Abd Pain ED Provider: Verna Nicole Dx/Rx/DC Orders Clinical Impression: Acute left-sided thoracic back pain, Diarrhea Instructions: ED Back Pain (Acute or Chronic), ED Flank Pain, Uncertain Cause Prescriptions: New valacyclovir [Valtrex] 1 gram tablet 1,000 mg PO Q8H 7 Days Qty: 21 0RF oxycodone-acetaminophen [Percocet] 5-325 mg tablet 1 tab PO Q8H PRN (Reason: pain) 3 Days Qty: 10 0RF No Action amlodipine [Norvasc] 5 mg tablet 5 mg PO DAILY fenofibrate 160 mg tablet 160 mg PO DAILY glimepiride 1 mg tablet 1 mg PO DAILY hydrochlorothiazide 25 mg tablet 25 mg PO DAILY metformin 500 mg tablet 500 mg PO BID lisinopril 5 mg tablet 5 mg PO DAILY atorvastatin 20 mg tablet 20 mg PO DAILY cinnamon bark 500 MG capsule 500 mg PO DAILY omeprazole 20 MG capsule 20 mg PO DAILY dicyclomine 10 MG capsule 20 mg PO Q6H PRN PRN (Reason: abdominal discomfort) Qty: 20 0RF sucralfate 1 gram tablet 1 g PO 4X/DAY Qty: 120 2RF Primary Care Provider: Julia Lynn Referrals: Tray Kulkarni MD [Med Staff - Active Staff] - (as needed ) Julia Lynn, [employer] [Primary Care Provider] - Activity Restrictions/Additional Instructions: The exact cause of your symptoms today is not clear. It is possible clued muscle skeletal, pinched nerve in your back or possibly the prodrome of shingles. Should you develop a rash in the next 1 to 2 days please start taking the antiviral. If you do not develop a rash you do not need it. Alternate Profen Tylenol however if pain becomes severe you have been given a short course of Percocet for pain control. Please follow-up with your primary care doctor. Your CT of the abdomen and pelvis did show some lymph nodes in the abdomen. This could be consistent with some low-grade inflammation or viral illness however this is a nonspecific finding. Your lab work is otherwise largely normal. Print Language: Ghanaian Disposition Disposition: Home, Self Care
[2024-10-12 14:25] LABS: Bacteria 0 SEEN /hpf (None Seen); Mucous, Urine 0 SEEN /hpf (<or=2+); Red Blood Cells-Urine 0 SEEN /hpf (0-5); Squamous Epithelial Cells - UA 0 SEEN /hpf (0-5); White Blood Cells 0 SEEN /hpf (0-5)
[2024-10-12 14:28] LABS: Color, Urine Yellow (Yellow); Glucose, Dipstick Normal (Normal); Ketone-Dipstick Negative (Negative); Leukocyte Esterase-Dipstick Negative /ul (Negative); Nitrite-Dipstick Negative (Negative); Occult Blood-Urine Negative /ul (Negative); Protein-Dipstick Negative (Negative); Urine Bilirubin Dipstick Negative (Negative); Urine Clarity Clear (Clear); Urine Urobilinogen Normal (Normal)
[2024-10-12 14:43] LABS: ALB/GLOB Ratio 1.3 RATIO (0.9-2.4); AST(SGOT) 32 U/L (<=37); Alanine Aminotransfer ALT/SGPT 33 U/L (<=46); Albumin, Serum 4.3 g/dL (3.5-5.0); Alkaline Phosphatase 56 U/L (40-129); Anion Gap 11 (5-15); BUN 16 mg/dL (4-19); BUN/Creat Ratio 14.4 RATIO (10-20); Calcium,Total 9.5 mg/dL (7.6-11.0); Carbon Dioxide 22.3 mmol/L (21.0-32.0); Chloride 106 mmol/L (98-108); Creatinine, Serum 1.08 mg/dL (0.70-1.20); EST Glomerular Filtration Rate 81 (>60); Globulin 3.2 g/dL (2.2-4.2); Glucose 104 mg/dL (70-99); Potassium 4.2 mmol/L (3.3-5.1); Protein, Total 7.5 g/dL (5.9-8.4); Sodium Level 139 mmol/L (133-145)
[2024-10-12 15:14] VITALS: BP 128/84; PULSE 66; RESP 16; O2SAT 98
[2024-10-12 16:44] VITALS: BP 124/78; PULSE 67; RESP 18; O2SAT 97
== END 2024-10-12 16:45 | disposition home or self-care (01) ==
PROVIDERS: Emergency Provider Emergency Medicine; PCP Nurse Practitioner Family; Visit Provider Emergency Medicine
DX: M54.6 Pain in thoracic spine (principal); E11.9 Type 2 diabetes mellitus without complications; R19.7 Diarrhea, unspecified; E78.2 Mixed hyperlipidemia; I10 Essential (primary) hypertension; K57.30 Diverticulosis of large intestine without perforation or abscess without bleeding; F17.220 Nicotine dependence, chewing tobacco, uncomplicated
CPT/HCPCS: 74176; 80053; 81001; 85025; 96361; 96374; 96375; 99284; A4216; J2405